=== PATIENT | male | born 1985 | race American Indian/Alaskan Native ===

== ENCOUNTER 2019-06-19 20:11 | Emergency (ER) | payer OTHER ==
[2019-06-19] MEDS ORDERED: ONDANSETRON 4 MG/2 ML INJ IV ONE (20:34)
[2019-06-19] MEDS ORDERED: diphenhydrAMINE 50 MG/ML VIAL IV ONE (20:34)
[2019-06-19] MEDS ORDERED: METOCLOPRAMIDE 10 MG/2 ML INJ IV ONE (20:34)
[2019-06-19 21:00] LABS: Basophils # (Auto) 0.1 K/mm3 (0.0-0.1); Basophils % (Auto) 0.3 % (0.0-1.8); Eosinophils % (Auto) 0.2 % (0.0-4.3); Hematocrit 30.4 % (35.5-45.6); Hemoglobin 10.2 gm/dl (11.8-15.2); Lymphocytes # (Auto) 1.2 K/mm3 (1.2-5.4); Lymphocytes % (Auto) 6.9 % (13.4-35.0); Mean Corpuscular HGB Conc 34 % (32-34); Mean Corpuscular Volume 89 fl (84-94); Monocytes # (Auto) 0.5 K/mm3 (0.0-0.8); Monocytes % (Auto) 3.1 % (0.0-7.3); Platelet Count 356 K/mm3 (140-440); Red Cell Distribution Width 14.5 % (13.2-15.2)
--- NOTE | 2019-06-19 21:00 | Emergency Department Report ---
ED General Adult HPI - General Chief complaint: Nausea/Vomiting/Diarrhea Stated complaint: VOMITING BLOOD Time Seen by Provider: 06/19/19 20:15 Source: patient, EMS Mode of arrival: Stretcher Limitations: No Limitations - History of Present Illness Initial comments: She presents to the emergency department with a chief complaint of nausea and vomiting that started around 6 AM this morning. Patient denies any diarrhea or patient denies chest pain, STEVENS or Fever. The patient complains of diffuse abdominal pain that he describes as sharp in nature. Patient's not quite sure of any sick contacts. Patient has a history of hypertension but has not been able to keep his blood pressure medications down due to vomiting. On presentation BP was 218/107. The patient denies chest pain or headache. -: Sudden Severity scale (0 -10): 0 Consistency: constant Improves with: none Worsens with: none Associated Symptoms: denies other symptoms Treatments Prior to Arrival: none - Related Data Previous Rx's Medication Instructions Recorded Last Taken Type Ondansetron [Zofran Odt] 4 mg PO Q4HR PRN #20 tab.rapdis 06/20/19 Unknown Rx Promethazine [Phenergan TAB] 25 mg PO Q6HR PRN #20 tab 06/20/19 Unknown Rx Allergies Allergy/AdvReac Type Severity Reaction Status Date / Time No Known Allergies Allergy Unverified 06/19/19 20:13 ED Review of Systems ROS: Stated complaint: VOMITING BLOOD Other details as noted in HPI Comment: All other systems reviewed and negative Constitutional: denies: chills, fever Eyes: denies: eye pain, eye discharge, vision change ENT: denies: ear pain, throat pain Respiratory: denies: cough, shortness of breath, wheezing Cardiovascular: denies: chest pain, palpitations Endocrine: no symptoms reported Gastrointestinal: nausea, vomiting. denies: abdominal pain, diarrhea Genitourinary: denies: urgency, dysuria Musculoskeletal: denies: back pain, joint swelling, arthralgia Skin: denies: rash, lesions Neurological: denies: headache, weakness, paresthesias Psychiatric: denies: anxiety, depression Hematological/Lymphatic: denies: easy bleeding, easy bruising ED Past Medical Hx - Past Medical History Hx Diabetes: Yes (insulin) Hx GERD: Yes Hx Renal Disease: Yes - Surgical History Past Surgical History?: No - Social History Smoking Status: Never Smoker Substance Use Type: Marijuana - Medications Home Medications: Home Medications Medication Instructions Recorded Confirmed Last Taken Type Ondansetron [Zofran Odt] 4 mg PO Q4HR PRN #20 tab.rapdis 06/20/19 Unknown Rx Promethazine [Phenergan TAB] 25 mg PO Q6HR PRN #20 tab 06/20/19 Unknown Rx ED Physical Exam - General Limitations: No Limitations General appearance: alert, in no apparent distress - Head Head exam: Present: atraumatic, normocephalic - Eye Eye exam: Present: normal appearance, PERRL, EOMI - ENT ENT exam: Present: mucous membranes dry - Neck Neck exam: Present: normal inspection - Respiratory Respiratory exam: Present: normal lung sounds bilaterally. Absent: respiratory distress - Cardiovascular Cardiovascular Exam: Present: normal rhythm, tachycardia. Absent: systolic murmur, diastolic murmur, rubs, gallop - GI/Abdominal GI/Abdominal exam: Present: soft, tenderness (diffusely tender to palpation), normal bowel sounds. Absent: distended - Rectal Rectal exam: Present: deferred - Extremities Exam Extremities exam: Present: normal inspection - Back Exam Back exam: Present: normal inspection - Neurological Exam Neurological exam: Present: alert, oriented X3, CN II-XII intact. Absent: motor sensory deficit - Psychiatric Psychiatric exam: Present: normal affect, normal mood - Skin Skin exam: Present: warm, dry, intact, normal color. Absent: rash ED Course Vital Signs 06/19/19 06/19/19 06/19/19 20:15 20:18 22:07 Temperature 98.5 F Pulse Rate 108 H 94 H Respiratory 19 16 16 Rate Blood Pressure 185/99 Blood Pressure 183/101 [Left] O2 Sat by Pulse 98 99 Oximetry 06/19/19 06/20/19 23:11 02:52 Temperature Pulse Rate 103 H 95 H Respiratory 16 16 Rate Blood Pressure Blood Pressure 157/88 170/93 [Left] O2 Sat by Pulse 99 95 Oximetry ED Medical Decision Making - Lab Data Result diagrams: 06/19/19 20:41 06/19/19 20:41 Lab Results 06/19/19 06/19/19 06/20/19 Range/Units 20:41 20:41 02:27 WBC 16.9 H (4.5-11.0) K/mm3 RBC 3.40 L (3.65-5.03) M/mm3 Hgb 10.2 L (11.8-15.2) gm/dl Hct 30.4 L (35.5-45.6) % MCV 89 (84-94) fl MCH 30 (28-32) pg MCHC 34 (32-34) % RDW 14.5 (13.2-15.2) % Plt Count 356 (140-440) K/mm3 Lymph % (Auto) 6.9 L (13.4-35.0) % [place] % (Auto) 3.1 (0.0-7.3) % Eos % (Auto) 0.2 (0.0-4.3) % Baso % (Auto) 0.3 (0.0-1.8) % Lymph # 1.2 (1.2-5.4) K/mm3 [place] # 0.5 (0.0-0.8) K/mm3 Eos # 0.0 (0.0-0.4) K/mm3 Baso # 0.1 (0.0-0.1) K/mm3 Seg Neutrophils % 89.5 H (40.0-70.0) % Seg Neutrophils # 15.1 H (1.8-7.7) K/mm3 Sodium 147 H (137-145) mmol/L Potassium 3.7 (3.6-5.0) mmol/L Chloride 110.1 H (98-107) mmol/L Carbon Dioxide 21 L (22-30) mmol/L Anion Gap 20 mmol/L BUN 34 H (9-20) mg/dL Creatinine 3.2 H (0.8-1.5) mg/dL Estimated GFR 27 ml/min BUN/Creatinine Ratio 11 % Glucose 156 H (75-100) mg/dL POC Glucose 170 H (70-105) Calcium 9.0 (8.4-10.2) mg/dL Total Bilirubin 0.40 (0.1-1.2) mg/dL AST 38 (5-40) units/L ALT 49 (7-56) units/L Alkaline Phosphatase 116 (35-129) units/L Total Protein 7.1 (6.3-8.2) g/dL Albumin 3.4 L (3.9-5) g/dL Albumin/Globulin Ratio 0.9 % Lipase 10 L (13-60) units/L Urine Color (Yellow) Urine Turbidity (Clear) Urine pH (5.0-7.0) Ur Specific [place] (1.003-1.030) Urine Protein (Negative) mg/dL Urine Glucose (UA) (Negative) mg/dL Urine Ketones (Negative) mg/dL Urine Blood (Negative) Urine Nitrite (Negative) Urine Bilirubin (Negative) Urine Urobilinogen (<2.0) mg/dL Ur Leukocyte Esterase (Negative) Urine WBC (Auto) (0.0-6.0) /HPF Urine RBC (Auto) (0.0-6.0) /HPF U Epithel Cells (Auto) (0-13.0) /HPF Hyaline Casts /LPF 06/20/19 Range/Units Unknown WBC (4.5-11.0) K/mm3 RBC (3.65-5.03) M/mm3 Hgb (11.8-15.2) gm/dl Hct (35.5-45.6) % MCV (84-94) fl MCH (28-32) pg MCHC (32-34) % RDW (13.2-15.2) % Plt Count (140-440) K/mm3 Lymph % (Auto) (13.4-35.0) % [place] % (Auto) (0.0-7.3) % Eos % (Auto) (0.0-4.3) % Baso % (Auto) (0.0-1.8) % Lymph # (1.2-5.4) K/mm3 [place] # (0.0-0.8) K/mm3 Eos # (0.0-0.4) K/mm3 Baso # (0.0-0.1) K/mm3 Seg Neutrophils % (40.0-70.0) % Seg Neutrophils # (1.8-7.7) K/mm3 Sodium (137-145) mmol/L Potassium (3.6-5.0) mmol/L Chloride (98-107) mmol/L Carbon Dioxide (22-30) mmol/L Anion Gap mmol/L BUN (9-20) mg/dL Creatinine (0.8-1.5) mg/dL Estimated GFR ml/min BUN/Creatinine Ratio % Glucose (75-100) mg/dL POC Glucose (70-105) Calcium (8.4-10.2) mg/dL Total Bilirubin (0.1-1.2) mg/dL AST (5-40) units/L ALT (7-56) units/L Alkaline Phosphatase (35-129) units/L Total Protein (6.3-8.2) g/dL Albumin (3.9-5) g/dL Albumin/Globulin Ratio % Lipase (13-60) units/L Urine Color Yellow (Yellow) Urine Turbidity Clear (Clear) Urine pH 7.0 (5.0-7.0) Ur Specific [place] 1.014 (1.003-1.030) Urine Protein 300 mg/dl (Negative) mg/dL Urine Glucose (UA) >=500 (Negative) mg/dL Urine Ketones Tr (Negative) mg/dL Urine Blood Sm (Negative) Urine Nitrite Neg (Negative) Urine Bilirubin Neg (Negative) Urine Urobilinogen < 2.0 (<2.0) mg/dL Ur Leukocyte Esterase Neg (Negative) Urine WBC (Auto) 3.0 (0.0-6.0) /HPF Urine RBC (Auto) 13.0 (0.0-6.0) /HPF U Epithel Cells (Auto) < 1.0 (0-13.0) /HPF Hyaline Casts 1 /LPF - Radiology Data Radiology results: report reviewed - Medical Decision Making Due to the patient had an elevated white count and with physical exam findings on abdominal exam was decided that the patient should receive a CT of the abdomen and pelvis Patient has baseline renal disease and states that his kidney vaginal levels always elevated he's aware of them. Patient's symptoms improved with medications for nausea and vomiting. The patient was offered admission and politely declined Critical care attestation.: If time is entered above; I have spent that time in minutes in the direct care of this critically ill patient, excluding procedure time. ED Disposition Clinical Impression: Nausea & vomiting, Chronic kidney disease Disposition: DC-01 TO HOME OR SELFCARE Is pt being admited?: No Does the pt Need Aspirin: No Condition: Stable Instructions: Chronic Kidney Disease (ED), Acute Nausea and Vomiting (ED) Additional Instructions: return if worse Prescriptions: Promethazine [Phenergan TAB] 25 mg PO Q6HR PRN #20 tab PRN Reason: Nausea Ondansetron [Zofran Odt] 4 mg PO Q4HR PRN #20 tab.rapdis PRN Reason: Nausea Referrals: PRIMARY CARE, [Primary Care Provider] - 3-5 Days [facility] [Provider Group] - 3-5 Days [facility] [Provider Group] - 3-5 Days BILL KRAUSE MD [Staff Physician] - 3-5 Days Time of Disposition: 03:56
[2019-06-19 21:14] LABS: Albumin 3.4 g/dL (3.9-5)
[2019-06-19] MEDS ORDERED: SODIUM CHLORIDE 0.9% 1000 ML 1,000 ML IV ONE ×2 (22:58→23:12)
[2019-06-20] MEDS ORDERED: ONDANSETRON 4 MG/2 ML INJ IV ONE (00:28)
[2019-06-20 00:58] LABS: Bilirubin,Urine NEG (Negative); Blood,Urine SM (Negative); Color,Urine Yellow (Yellow); Hyaline Casts,Urine 1 /LPF; Urobilinogen,Urine < 2.0 mg/dL (<2.0)
[2019-06-20 01:07] LABS: Protein,Urine 300 mg/dL mg/dL (Negative)
[2019-06-20] MEDS ORDERED: HALOPERIDOL LACTATE 5 MG/1 ML INJ IM ONE (02:00)
[2019-06-20 02:59] VITALS: BP 170/93
--- NOTE | 2019-06-20 03:35 | Cat Scan Report ---
CT ABDOMEN AND PELVIS WITHOUT CONTRAST INDICATION / CLINICAL INFORMATION: ab pain with n/v. Abdominal pain with nausea and vomiting. TECHNIQUE: Axial CT images were obtained through the abdomen and pelvis without IV contrast. All CT scans at [facility] location are performed using CT dose reduction for ALARA by means of automated exposure control. S omewhat limited exam secondary to respiratory motion. COMPARISON: None available. FINDINGS: LOWER CHEST: No significant abnormality. LIVER: No significant abnormality. GALLBLADDER: No significant abnormality. BILE DUCTS: No significant abnormality. PANCREAS: No significant abnormality. SPLEEN: No significant abnormality. ADRENALS: No significant abnormality. RIGHT KIDNEY and URETER: No significant abnormality. LEFT KIDNEY and URETER: No significant abnormality. STOMACH and SMALL BOWEL: No significant abnormality. COLON: No significant abnormality. APPENDIX: No significant abnormality. PERITONEUM: No free fluid. No free air. No fluid collection. LYMPH NODES: No significant adenopathy. AORTA and ARTERIES: No significant abnormality. IVC and VEINS: No significant abnormality. URINARY BLADDER: No significant abnormality. REPRODUCTIVE ORGANS: No significant abnormality. ADDITIONAL FINDINGS: None. SKELETAL SYSTEM: No significant abnormality. IMPRESSION: Small type I hiatal hernia. No obstructive bowel gas pattern is appreciated. No acute findings apprec iated within the limits of the noncontrast technique. Signer Name: Dimitris Mensah MD Signed: 06/20/2019 3:31 AM Workstation Name: [employer]
== END 2019-06-20 04:24 | disposition home or self-care (01) ==
LOC: ED 20:11
DX: R11.2 Nausea with vomiting, unspecified (principal); N18.9 Chronic kidney disease, unspecified; E11.9 Type 2 diabetes mellitus without complications; K21.9 Gastro-esophageal reflux disease without esophagitis; F12.10 Cannabis abuse, uncomplicated; Z79.899 Other long term (current) drug therapy; Z79.4 Long term (current) use of insulin
CPT/HCPCS: 36415; 74176; 80053; 81001; 82962; 83690; 85025; 96361; 96372; 96374; 96375; 96376; 99284; J1200; J1630; J2405; J2765; J7030